=== PATIENT | female | born 1965 | race Caucasian/White ===

== ENCOUNTER 2024-01-23 09:25 | Outpatient (REF) | payer MEDICAID, SELFPAY ==
--- NOTE | 2024-01-23 10:23 | MHC.AU.MED ---
Medical Clearance for Hearing Instrumentation Date: 01/23/24 Patient Name: Sherri Chavez Date of : 1965 Primary Care Provider: Radha Flores MD We have seen your patient on 01/23/24 and have determined that they are a candidate for amplification (See accompanying report). Specifically, they would benefit from: Hearing aid use in both ears There is a statute that addresses Medical Evaluation Requirements prior to fitting a patient with a hearing aid. According to [place] statute [facility] CMR:6.03(1), (a) General. Except as provided in 265 CMR 6.03(1)(b), a patient account analyst shall not sell a hearing aid unless the prospective user has presented to the patient account analyst a written statement signed by a licensed physician that states that the patient's hearing loss has been medically evaluated and the patient may be considered a candidate for a hearing aid. The medical evaluation must have taken place within the preceding six months. Please note: Due to the [place] Statute referenced above, we cannot accept a signature other than that of a licensed physician. ELECTROSLAG WELDING MACHINE OPERATOR and PA signatures cannot be accepted. I am in agreement with the above recommendation. There is no medical contraindication for hearing instrumentation. Physician Signature Date Physician Name (Printed)
--- NOTE | 2024-01-23 13:38 | MHC.AU.HA1 ---
Hearing Aid Evaluation Date of Visit: 01/23/24 Historical Information: Description of Hearing: Mild sensorineural hearing loss rising to normal hearing sloping to moderate hearing loss, bilaterally Summary: Sherri reported significant communication difficulties in her daily interactions. Speech is not clear and she often needs repetition in order to fully understand a conversation. Given the configuration of hearing loss, discussed borderline hearing aid candidacy and realistic expectations. Sherri is motived to use hearing aids while understanding their limitations. She opted to trial rechargeable RITE hearing aids compatible with her iPhone. Provided Sherri with a copy of the medical clearance form at her request. She reported she will bring it to her PCP office to sign and then she will return it here. Once signed medical clearance is received, will need to submit for prior authorization through her insurance. Hearing Aid Prescription: Based on the individual?s shared listening needs, communication environments, dexterity, desire for connectivity, and personal preferences, the following prescription for amplification has been made: Right ear: Make, Model, Color: Oticon REAL 2 miniRITE-R Color: Steel Bingham Battery Size: Rechargeable Carpenters Supervisor/Slim Tube: 2/85 Type of Earmold/Dome/CShell/SlimTip: 8mm open redmond dome Left ear: Left ear prescription to be same as Right Hearing Aid above: Make, Model, Color: Oticon REAL 2 miniRITE-R Color: Steel Bingham Battery Size: Rechargeable Carpenters Supervisor/Slim Tube: 2/85 Type of Earmold/Dome/CShell/SlimTip: 8mm open redmond dome Accessories/Assistive Technology: Enterprise Resource Analyst Plan of Care: Patient wishes to purchase hearing aids as prescribed Action Taken/Action Needed: Medical Clearance to be requested from PCP/ENT. Hearing Instrument Fitting to be scheduled when materials arrive Comments: Once medical clearance is received, will submit PA to insurance. Once PA received, will order hearing aids. Primary Diagnosis: H90.3 Bilateral Sensorineural Hearing Loss Signature: Provider: Mayito Chang, [facility]
== END 2024-01-23 09:26 | disposition home or self-care (01) ==
LOC: HO.SH 09:25
PROVIDERS: PCP Family Medicine; Visit Provider Family Medicine
DX: Z01.118 Encounter for examination of ears and hearing with other abnormal findings (principal); Z46.1 Encounter for fitting and adjustment of hearing aid; H90.3 Sensorineural hearing loss, bilateral
CPT/HCPCS: 92557; 92591

== ENCOUNTER 2025-01-17 09:07 | Outpatient (REF) | payer MEDICAID, SELFPAY ==
--- NOTE | 2025-01-17 14:41 | MHC.AU.HA1 ---
Hearing Aid Evaluation Date of Visit: 01/17/25 Historical Information: Description of Hearing: Mild rising to borderline normal through 3kHz gradually sloping to moderate sensorineural hearing loss Au. Current personal amplification information, if applicable: None. Summary: Sherri was seen last year and was interested in pursuing amplification at that time. She reports her insurance authorization was approved eventually but her hearing test had . We only have record here of a denial of the prior authorization on 03/04/24. Sherri notes significant frustration with hearing difficulty for conversation. Reviewed benefits and limitations of amplification. Discussed adjustment to amplification. Recommended proceeding with trial of RITE style hearing aid as previously discussed in 2023 to facilitate improved communication. Hearing Aid Prescription: Based on the individual?s shared listening needs, communication environments, dexterity, desire for connectivity, and personal preferences, the following prescription for amplification has been made: Right ear: Make, Model, Color: Oticon INTENT 2 miniRITE-R Color: Steel Bingham Battery Size: Rechargeable Grey Tender/Slim Tube: 2/85 Type of Earmold/Dome/CShell/SlimTip: 8mm double redmond Left ear: Make, Model, Color: Oticon INENT 2 miniRITE-R Color: Steel Bingham Battery Size: Rechargeable Grey Tender/Slim Tube: 2/85 Type of Earmold/Dome/CShell/SlimTip: 8mm double redmond dome Plan of Care: Patient wishes to purchase hearing aids as prescribed Action Taken/Action Needed: Prior authorization to be requested Medical Clearance to be requested from PCP/ENT Primary Diagnosis: H90.3 Bilateral Sensorineural Hearing Loss Signature: Provider: Mayito Syed, [facility]
== END 2025-01-17 09:08 | disposition home or self-care (01) ==
LOC: HO.SH 09:07
PROVIDERS: Visit Provider Family Medicine
DX: Z01.118 Encounter for examination of ears and hearing with other abnormal findings (principal); Z46.1 Encounter for fitting and adjustment of hearing aid; H90.3 Sensorineural hearing loss, bilateral
CPT/HCPCS: 92557; 92567; 92591

== ENCOUNTER 2025-02-21 14:58 | Outpatient (REF) | payer MEDICAID, SELFPAY ==
--- NOTE | 2025-02-21 16:07 | MHC.AU.HA2 ---
Hearing Instrument Fitting- Adult- Binaural Date of Visit: 02/21/25 Hearing Instruments Dispensed: Right Ear: Make, Model, Color, Serial Number: Oticon INTENT 2 miniRITE-R Color: Antonio Bingham S#[id number] Load Planner Repair Warranty: 03/04/2028 Load Planner Loss and Damage Warranty: 03/04/2028 [facility] Service Plan: 02/21/26 Battery Size: Rechargeable Backend Developer/Slim Tube: 2/85 Earmold/Dome/CShell/SlimTip: 6mm double redmond Type of Wax Guard: Oticon minifit Prowax Left Ear: Make, Model, Color, Serial Number: Oticon INENT 2 miniRITE-R Color: Antonio Bingham S#[id number] Load Planner Repair Warranty: [id number] Load Planner Loss and Damage Warranty: [id number] [facility] Service Plan: 02/21/26 Battery Size: Rechargeable Backend Developer/Slim Tube: 2/85 Earmold/Dome/CShell/SlimTip: 6mm double redmond dome Type of Wax Guard: Oticon minifit prowax Accessories/Assistive Technology: Oticon sandwich wrapper minirite [id number] Warranty 03/04/2028 Summary of Fitting: Fit with and oriented to binaural Oticon Intent 2 R HAs. Verified to L adult 5 targets. VC disabled at this time. Reviewed charging, maintenance, precautions. Practiced insertion and removal. Not connected to phone at this time, may wish to do this at follow up. Recommendations: Recommendations: A hearing instrument follow-up was scheduled. Diagnosis Code(s): Primary Diagnosis: H90.3 Bilateral Sensorineural Hearing Loss Signature: Provider: Mayito Syed, [facility]
--- OUTSIDE RECORDS SUMMARY | 2025-02-21 17:45 | XMS_ITS | Clinical Summary ---
Author Organization [facility] Address [address] [place] [address] Care Team Providers Care Assistant Associate Professor Name Role Phone Unavailable Primary Care Provider Unavailabl e Allergies Active Allergy Reactions Criticality Noted Date Comments Sulfa Antibiotics Rash Low 10/03/2008 Wound Dressing Adhesive Rash High 10/13/2020 Blistered, weeping periwound skin Medications Medication Sig Dispensed Refills Start Date End Date Status DULoxetine (CYMBALTA) DR capsule 60 mg Take 60,120 mg by mouth daily. 0 Active amphetamine-dextroamp hetamine (ADDERALL XR, 30MG,) 30 MG 24 hr capsule Take 30 mg by mouth every morning. 0 Active lisinopril (PRINIVIL,ZESTRIL) tablet 20 mg Take 1 tablet (20 mg total) by mouth daily. 90 tablet 0 04/08/2022 Active Active Problems Problem Noted Date Diagnosed Date Iron deficiency anemia due to malabsorption of i dwight 07/25/2020 Major depressive disorder, r ecurrent episode, in partial remission 11/02/2015 Obesity, Class III, BMI 40-49.9 (morbid obesity) 01/05/2015 Malabsorption of iron 08/13/2013 S/P gastric bypass 06/01/2009 Family History Medical History Relation Name Comments Cancer Paternal Grandfather Relation Name Status Comments Paternal Grandfather Social History Tobacco Use Types Packs/Day Years Used Date Smoking Tobacco: Never Smokeless Tobacco: Never Alcohol Use Standard Drinks/Week Comments No 0 (1 standard drink = 0.6 oz pur e alcohol) Sex and Gender Information Value Date Recorded Sex Assigned at Female 04/04/2022 3:16 PM EDT Gender Identity Not on file Sexual Orientation Not on file Job Start Date Occupation Industry Not on file Not on file Not on file Last Filed Vital Signs Vital Sign Reading Time Taken Comments Blood Pressure 129/81 04/18/2022 2:22 PM EDT Pulse 82 04/18/2022 2:22 PM EDT Temperature 36.2 ??C (97.2 ??F) 04/18/2022 2:22 PM ED T Respiratory Rate - - Oxygen Saturation 99% 04/18/2022 2:22 PM EDT Inhaled Oxygen Concentration - - Weight 99.5 kg (219 lb 6.4 oz) 04/08/2022 3:02 P M EDT Height 152.4 cm (5') 04/08/2022 3:02 PM EDT Body Mass Index 42.85 04/08/2022 3:02 PM EDT Plan of Treatment Health Maintenance Due Date Last Done Comments Hepatitis C Screening 1965 COVID-19 Vaccine (#1) 01/07/1965 Depression Screening 1976 BMI Counseling 1982 Preventative Health Evaluation 1982 Cervical Cancer Screening (P ap Smear) 1985 Colon Cancer Screening (Colonoscopy) 2009 Breast Cancer Screening (Mammogram) 2014 Shingrix-Zoster Vaccine (2 of 2) 12/01/2020 10/06/20 20 DTap / Tdap / Td (2 - Td or Tdap) 06/24/2023 013 Influenza Vaccine (#1) 2024 RSV Adult > 60+ Yrs or Pregn ant (1 - 1-dose 75+ series) 2039 Hepatitis B Vaccines Aged Out No long er eligible based on patient's age to complete this topic Pneumococcal Vaccine Aged Out No long er eligible based on patient's age to complete this topic RSV Ped < 20 months Aged Out No longe r eligible based on patient's age to complete this topic
--- OUTSIDE RECORDS SUMMARY | 2025-02-21 17:45 | XMS_ITS | Clinical Summary ---
Author Organization [facility] it[facility] Address [address] [place] [address] Care Team Providers Care Robotic Machine Operator Name Role Phone Reza Flaherty MD Primary Care Provider Allergies Active Allergy Reactions Criticality Noted Date Comments Gum Bucgvk-Oxcugg-Fmla-Alcoho l Rash High 10/13/2020 Blistered, weeping periwound skin Medications lisinopriL (PRINIVIL,ZESTR IL) 20 mg tablet Take 1 tablet (20 mg total) by mouth 1 (one) time each day. 2 Active DULoxetine (CYMBALTA) [address] capsule Take 2 capsules (120 mg total) by mouth 1 (one) time each day. With breakfast 0 Active amphetamine-dex troamphetamine (ADDERALL) 10 mg tablet Take 1 tablet (10 mg total) by mouth 2 (two) times a day. 30 days Max Daily Amount: 20 mg 0 Active amphetamine-dex troamphetamine XR (ADDERALL XR) 30 mg 24 hr capsule Take 1 capsule (30 mg total) by mouth 1 (one) time each day in the morning. For 30 days Max Daily Amount: 30 mg 0 Active Active Problems Problem Noted Date Diagnosed Date Vitamin D deficiency 06/03/2021 Essential hypertension 09/18/2020 Incisional hernia of anterio r abdominal wall without obstruction or gangrene 09/08/2020 Attention deficit hyperactiv ity disorder (ADHD), predominantly hyperactive type 02/25/2019 Major depressive disorder, r ecurrent episode, in partial remission (CMS/HCC V24) 11/02/2015 Obesity, Class III, BMI 40-49.9 (morbid obesity) 01/05/2015 Compulsive skin picking 01/06/2014 Malabsorption of iron 08/13/2013 Iron deficiency anemia 06/24/2013 Overview (10/23/2024): IV iron infusion by Dr. Crowe Proctalgia fugarin 08/11/2012 Immunizations Name Administration Dates Next Due Tdap Tetanus diptheria acell ular pertussis (Boostrix; Adacel) 7yo and older 06/24/2013 Zoster recombinant (Shingrix) 19yo and older 08/2020 Surgical History Surgery Date Site/Laterality Comments TONSILLECTOMY ADENOIDECTOMY, BILATERAL MYRINGOTOMY AND TUBES PROCEDURE: CT TONSILLECTOMY & ADENOIDECTOMY <AGE 12 GASTRIC BYPASS 2006 PROCEDURE: CT GASTRIC RSTCV W/BYP W/SM INT RCNSTJ LIMIT ABSRPJ; COMMENT: Vertical sleeve gastrectomy, Dr. Valdez Mccurdy, [place] OTHER SURGICAL HISTORY 12/2019 PROCEDURE: CT PROCTOPEXY W/SIGMOID RESCJ ABDL APPR; COMMENT: rectal prolaps GASTRIC BYPASS PROCEDURE:GASTRIC BYPASS HAND SURGERY Right PROCEDURE:HAND SURGERY HAND SURGERY Left PROCEDURE:HAND SURGERY CHOLECYSTECTOMY PROCEDURE:CHOLECYSTECTOMY TONSILLECTOMY PROCEDURE:TONSILLECTOMY Medical History Medical History Date Comments Obesity DX:Obesity Depression DX:Depression Mammogram abnormal DX:Mammogram abnormal Trigger finger DX:Trigger finge r; COMMENT: s/p othropedic surgery Asthma DX:Asthma; COMME NT: exercise induced Unspecified essential hypertension DX:Unspecified essential hypertension Iron deficiency anemia, unspecified 06/24/2013 DX:Iron deficiency anemia, unspecified Essential (primary) hypertension DX:Essential (primary) hypertension ADHD, predominantly hyperactive type DX:ADHD, predominantly hyperactive type Major depressive disorder, r ecurrent episode, in partial remission (CMS/HCC V24) DX:Major depressive disorder , recurrent episode, in partial remission (HCC) Malabsorption of iron DX:Malabso rption of iron Iron deficiency anemia DX:Iron d eficiency anemia Proctalgia fugax DX:Proctalgia f ugax Family History Medical History Relation Name Comments Depression Brother 1 2 brothers ALS Father Hypertension Father Alcohol abuse Maternal Grandfather Depression Mother Cancer Paternal Grandfather Leukemia Paternal Grandfather lung ca ncer Depression Sister 1 Breast cancer Neg Hx Colon cancer Neg Hx Ovarian cancer Neg Hx Uterine cancer Neg Hx Relation Name Status Comments Brother 1 Brother 2 Alive 40 depression Brother 3 Alive 35 Brother 4 Alive 33 depression Daughter Alive 5 adopted asthm a Father knee replacemen t, HTN, ALS Maternal Grandfather alcohol abuse Maternal Grandmother mental illness Mother Alive depression Paternal Grandfather Sister 1 Sister 2 Alive 37 depression, [place] Social History Tobacco Use Types Packs/Day Years Used Date Smoking Tobacco: Never Smokeless Tobacco: Never Alcohol Use Standard Drinks/Week Comments No 0 (1 standard drink = 0.6 oz pur e alcohol) Comments Unknown Sex and Gender Information Value Date Recorded Sex Assigned at Not on file Legal Sex Female 11:39 PM EST Gender Identity Not on file Sexual Orientation Not on file Obstetrics History Last Filed Vital Signs Vital Sign Reading Time Taken Comments Blood Pressure 171/98 04/08/2022 3:02 PM EDT Sitting Left arm Pulse 112 04/08/2022 3:02 PM EDT Temperature - - Respiratory Rate - - Oxygen Saturation - - Inhaled Oxygen Concentration - - Weight 99.5 kg (219 lb 6.4 oz) 04/08/2022 3:02 PM EDT Height 152.4 cm (5') 04/08/2022 3:02 PM EDT Body Mass Index 42.85 04/08/2022 3:02 PM EDT Plan of Treatment Health Maintenance Due Date Last Done Comments Pneumococcal Vaccine: 50+ Years (1 of 1 - PCV) 2014 Cervical Cancer Screening: Pap Smear 11/05/2020 11/05/2017, 11/05/2017 Zoster Vaccines (2 of 2) 12/01/2020 10/06/2020 Depression Screening 10/05/2022 HIV Screening 10/05/2022 Hepatitis C Screening 10/05/2022 Hypertension/CHF/CAD Annual BMP Blood Test 10/05/2022 05/25/2021 Social Influencers of Health Screening 10/05/2022 DTaP,Tdap,and Td Vaccines (2 - Td or Tdap) 06/24/2023 06/24/2013 Breast Cancer Screening 10/10/2023 10/10/20 21, 09/27/2020, 09/22/2019, Additional history exists COVID-19 Vaccine ( season) 2024 10/17/2021, 03/28/2021, 02/28/2021 RSV Immunization Adult Patients (1 - Risk 60-74 years 1-dose series) 2024 Influenza Vaccine (Season Ended) 2025 Cholesterol Screening (Lipid Panel) 11/02/2025 11/02/2020 Colorectal Cancer Screening: Colonoscopy 12/06/2026 12/22/2024 HIB Vaccines Aged Out No longer eligi ble based on patient's age to complete this topic HPV Vaccines Aged Out No longer eligi ble based on patient's age to complete this topic Hepatitis A Vaccines Aged Out No long er eligible based on patient's age to complete this topic Hepatitis B Vaccines Aged Out No long er eligible based on patient's age to complete this topic IPV Vaccines Aged Out No longer eligi ble based on patient's age to complete this topic MMR Vaccines Aged Out No longer eligi ble based on patient's age to complete this topic Meningococcal ACWY Vaccine Aged Out N o longer eligible based on patient's age to complete this topic Meningococcal B Vaccine Aged Out No l onger eligible based on patient's age to complete this topic Pneumococcal Vaccine: Pediatrics (0 to 5 Years) and At-Risk Patients (6 to 64 Years) Aged Out No longer eligible based on patient's age to complete this topic RSV Immunization Patients Under 20 months Aged Out No longer eligible based on patient's age to complete this topic Varicella Vaccines Aged Out No longer eligible based on patient's age to complete this topic Procedures Procedure Name Priority Date/Time Associated Diagnosis Comments EXTERNAL COLONOSCOPY REPORT Routine 12/22/2024 2:58 PM EST SCREENING MAMMOGRAPHY BI 2-VIEW BREAST INC CAD Routine 10/10/2021 8:16 AM EST Encounter for screening mammogram for malignant neoplasm of breast ANNUAL BMP BLOOD TEST Routine 05/25/2021 LIPID PANEL Routine 11/02/2020 HPV Routine 11/05/2017 from Last 3 Months or Most Recently Relevant to Health Maintenance Results * External Colonoscopy Report (12/22/2024 2:58 PM EST) Anatomical Region Laterality Modality Endoscopy us Historical Provider GI~PROCEDURE ORDERABLES F inal Result * SCREENING MAMMOGRAPHY BI 2-VIEW BREAST INC CAD (10/10/2021 8:16 AM EST) Anatomical Region Laterality Modality Radiographic Myla ging 09/27/2020 7:57 AM EST Narrative 10/10/2021 2:34 PM EST This is a summary report. The complete report is available in the patient's medical record. If you cannot access the medical record, please contact the sending organization for a detailed fax or copy. Full field digital 2D and tomosynthesis creening mammography, reviewed with CAD and compared to previous. ??The breasts are composed of fatty and fibroglandular tissue. ??No suspicious mass, architectural distortion or suspicious calcifications are identified. IMPRESSION: : No mammographic evidence of malignancy. BIRADS 1-Negative; N. 5 year breast cancer risk assessment 1.6 % Lifetime breast cancer risk assessment 9.5 % Breast cancer risk category Low (<15%) Procedure Note Azalea Smith MD - 10/15/2022 This is a summary report. The complete report is available in thepatient's medical record. If you cannot access the medical record, pleasecontact the sending organization for a detailed fax or copy. Full field digital 2D and tomosynthesis creening mammography, reviewedwith CAD and compared to previous. The breasts are composed of fatty andfibroglandular tissue. No suspicious mass, architectural distortion orsuspicious calcifications are identified. IMPRESSION: : No mammographic evidence of malignancy. BIRADS 1-Negative; N. 5 year breast cancer risk assessment 1.6 % Lifetime breast cancer risk assessment 9.5 % Breast cancer risk category Low (<15%) Shawnee Flanagan MD IMG XR PROCEDURES Final Result * Annual BMP Blood Test (05/25/2021) Pathologist [facility] Annual BMP Blood Test abstracted Historical Provider HEALTH MAINTENANCE Final Result * Lipid panel (11/02/2020) LDL/HDL Ratio 2 0 - 4 Triglycerides 63 0 - 150 mg/dL Cholesterol 142 0 - 200 mg/dL HDL 61 >=40 mg/dL LDL Cholesterol 69 0 - 100 mg/dL Blood Venous blood specimen / Unknown us Historical Provider LAB BLOOD ORDERABLES Gloria l Result * Cervical Cancer Screening: HPV (11/05/2017) Cervical Cancer Screening: HPV abstracted, negative us Historical Provider HEALTH MAINTENANCE Final Result from Last 3 Months or Most Recently Relevant to Health Maintenance Care Teams Robotic Machine Operator Relationship Specialty Start Date End Date Reza Flaherty MD [address] [place] [address] PCP - General Internal Medicine 03/21/22
== END 2025-02-21 14:59 | disposition home or self-care (01) ==
LOC: HO.HAP 14:58
PROVIDERS: Visit Provider Family Medicine
DX: Z46.1 Encounter for fitting and adjustment of hearing aid (principal); H90.3 Sensorineural hearing loss, bilateral
CPT/HCPCS: V5011; V5020; V5160; V5261

== ENCOUNTER 2025-03-14 14:02 | Outpatient (REF) | payer MEDICAID, SELFPAY ==
--- OUTSIDE RECORDS SUMMARY | 2025-03-14 14:08 | XMS_ITS | Clinical Summary ---
Author Organization [facility] Address [address] [place] [address] Care Team Providers Care Stake Setter Name Role Phone Unavailable Primary Care Provider [...]
--- OUTSIDE RECORDS SUMMARY | 2025-03-14 14:08 | XMS_ITS | Clinical Summary ---
Author Organization [facility] it[facility] Address [address] [place] [address] Care Team Providers Care Auto Servicer Name Role Phone Reza Flaherty MD Primary Care Provider Allergies Active Allergy Reactions Criticality Noted Date Comments Gum Laqdlz-Vtcliw-Aohk-Alcoho l Rash High 10/13/2020 Blistered, weeping periwound [...] TONSILLECTOMY ADENOIDECTOMY, BILATERAL MYRINGOTOMY AND TUBES PROCEDURE: [place] TONSILLECTOMY & ADENOIDECTOMY <AGE 11 GASTRIC BYPASS 2006 PROCEDURE: [place] GASTRIC RSTCV W/BYP W/SM INT RCNSTJ LIMIT ABSRPJ; COMMENT: Vertical sleeve gastrectomy, Dr. Valdez Mccurdy, [place] OTHER SURGICAL HISTORY 12/2019 PROCEDURE: [place] PROCTOPEXY W/SIGMOID RESCJ ABDL APPR; COMMENT: rectal [...] * Annual BMP Blood Test (05/25/2021) Pathologist [facility] Annual BMP Blood Test abstracted Historical Provider [...] Recently Relevant to Health Maintenance Care Teams Auto Servicer Relationship Specialty Start Date End Date Reza Flaherty MD [address] [place] [address] PCP - General Internal Medicine 03/21/22
== END 2025-03-14 14:03 | disposition home or self-care (01) ==
LOC: HO.HAP 14:02
PROVIDERS: Visit Provider Family Medicine
DX: Z13.89 Encounter for screening for other disorder (principal)

== ENCOUNTER 2025-05-23 09:16 | Outpatient (REF) | payer MEDICAID, SELFPAY ==
--- OUTSIDE RECORDS SUMMARY | 2025-05-23 10:02 | XMS_ITS ---
Author Name [facility] Organization Unknown Care Team Organization Name Specialty Phone Email Start Date End Da christa [facility] Delroy Mendez Primary Care 09/03/2022
--- OUTSIDE RECORDS SUMMARY | 2025-05-23 10:02 | XMS_ITS | Clinical Summary ---
Author Organization [facility] it[facility] Address [address] [place] [address] Care Team Providers Care Farm Crew Member Name Role Phone Reza Flaherty MD Primary Care Provider Allergies Active Allergy Reactions Criticality Noted Date Comments Gum Siwttg-Lwbpjw-Hlgb-Alcoho l Rash High 10/13/2020 Blistered, weeping periwound [...] TONSILLECTOMY ADENOIDECTOMY, BILATERAL MYRINGOTOMY AND TUBES PROCEDURE: [place] TONSILLECTOMY & ADENOIDECTOMY <AGE 11 GASTRIC BYPASS 2006 PROCEDURE: [place] GASTRIC RSTCV W/BYP W/SM INT RCNSTJ LIMIT ABSRPJ; COMMENT: Vertical sleeve gastrectomy, Dr. Valdez Mccurdy, [place] OTHER SURGICAL HISTORY 12/2019 PROCEDURE: [place] PROCTOPEXY W/SIGMOID RESCJ ABDL APPR; COMMENT: rectal [...] Zoster Vaccines (2 of 2) 12/01/2020 10/06/2020 HIV Screening 10/05/2022 Hepatitis C Screening 10/05/2022 Hypertension/CHF/CAD Annual BMP Blood Test 10/05/2022 05/25/2021 Social Influencers of Health Screening 10/05/2022 DTaP,Tdap,and Td Vaccines (2 - Td or Tdap) 06/24/2023 06/24/2013 Breast Cancer Screening 10/10/2023 10/10/20 21, 09/27/2020, 09/22/2019, Additional history exists COVID-19 Vaccine ( - season) 2024 10/17/2021, 03/28/2021, 02/28/2021 RSV Immunization Adult Patients (1 - Risk 60-74 years 1-dose series) 2024 Depression Screening 10/27/2024 Influenza Vaccine (#1) 2025 Cholesterol Screening (Lipid Panel) 11/02/2025 11/02/2020 [...] reviewed with CAD and compared to previous. The breasts are composed of fatty and fibroglandular tissue. No suspicious mass, architectural distortion or suspicious calcifications [...] * Annual BMP Blood Test (05/25/2021) Pathologist [facility] Annual BMP Blood Test abstracted Historical Provider HEALTH MAINTENANCE Final Result * Lipid panel (11/02/2020) [facility] LDL/HDL Ratio 2 0 - 4 Triglycerides 63 0 - 150 mg/dL Cholesterol 142 0 - 200 mg/dL HDL 61 >=40 mg/dL LDL Cholesterol 69 0 - 100 mg/dL Blood Venous blood specimen / Unknown Historical Provider LAB BLOOD ORDERABLES Gloria l Result * Cervical Cancer Screening: HPV (11/05/2017) Cervical Cancer Screening: HPV abstracted, negative us Historical Provider HEALTH MAINTENANCE Final Result from Last 3 Months or Most Recently Relevant to Health Maintenance Care Teams Farm Crew Member Relationship Specialty Start Date End Date Reza Flaherty MD [address] [place] [address] PCP - General Internal Medicine 03/21/22
--- OUTSIDE RECORDS SUMMARY | 2025-05-23 10:02 | XMS_ITS | Clinical Summary ---
Author Organization [facility] Address [address] [place] [address] Care Team Providers Care Riveter Hand Name Role Phone Unavailable Primary Care Provider [...] 82 04/18/2022 2:22 PM EDT Temperature 36.2 C (97.2 F) 04/18/2022 2:22 PM EDT Respiratory Rate - - Oxygen Saturation 99% [...] or Tdap) 06/24/2023 013 Influenza Vaccine (#1) 2025 RSV Adult > 60+ Yrs or Pregn [...]
--- OUTSIDE RECORDS SUMMARY | 2025-05-23 10:02 | XMS_ITS | Encounter Summary ---
Author Organization [facility] Address [address] [place] [phone] Phone Care Team Providers Care Unionmelt Operator Name Role Phone Unknown, Unknown Primary Care Provider Radha Crandall MD Primary Care Provider [phone] Taylor Knox MD, MPH Primary Care Provid er Radha Flores MD Unavailable [phone] Taylor Knox MD, MPH Unavailable + [phone] Magdalena Pace RN Unavailable [phone] Joceline Gonzalez PT Unavailable [phone] Reason for Visit * Reason Comments Med Change Request Encounter Details Date Type Department Care Team (Late st Contact Info) Description 10/15/2022 Refill [facility] [address] [place] [address] Ferdinand Cole PA-C [address] [place] [address] [email or web address] Med Change Request Social History Tobacco Use Types Packs/Day Years Used Date Smoking Tobacco: Never Smokeless Tobacco: Never Comments Unknown Sex and Gender Information Value Date Recorded Sex Assigned at Female 08/11/2023 1:58 PM EDT Legal Sex Female 9:42 PM EDT Gender Identity Female 08/11/2023 1:58 PM EDT Sexual Orientation Queer 08/11/2023 1: 58 PM EDT documented as of this encounter Progress Notes * Amy Hoskins MA - 10/15/2022 10:01 AM EST INSTRUCTIONS FOR CLINICAL STAFF (Steps for MA/RN to complete): n/a Visit Info ??? Last visit: 10/15/2022 (Ferdinand Cole PA-C) > Requested f/u: Not specified ??? Upcoming visit: 10/15/2022 (Ferdinand Cole PA-C) ACTIONS TAKEN BY Amy Hoskins - Refill protocol passed: no action needed. ACEi / ARBs / Diuretic Rx Protocol (on HTN Registry) ??? Visit in the past 12 months: Yes ??? Clinical criteria: - BP within last 6 months: 140/87 on 10/15/2022 - BMP within past year: Yes - Cr, GFR and K are normal: Yes Lab Results Component Value Date SODIUM 140 03/30/2022 POTASSIUM 3.5 03/30/2022 CHLORIDE 105 03/30/2022 CO2 26 03/30/2022 BUN 13 03/30/2022 CREATININE 0.50 03/30/2022 EGFR 109 03/30/2022 Health Maintenance Due Topic Date Due ??? MAMMOGRAM Never done ??? LIPID PANEL Never done ??? DEPRESSION SCREENING Never done ??? HEPATITIS C SCREENING Never done ??? HIV ONE-TIME SCREENING (18-65 YEARS) Never done ??? PAP SMEAR Never done ??? COLORECTAL CANCER SCREENING Never done ??? INFLUENZA VACCINE (1) 05/27/2022 documented in this encounter Plan of Treatment Upcoming Encounters Date Type Department Care Team (Late st Contact Info) Description 01/14/2025 Procedure Pass [address] [address] 08/01/2025 8:45 AM EDT Appointment [address] [address] Taylor Knox MD, MPH [address] [place] [phone] [email or web address] documented as of this encounter Visit Diagnoses Not on filedocumented in this encounter Additional Health Concerns Infection Onset Date Last Indicated Resolved Time CoV-Risk 12/14/2022 12/14/2022 12/25/2022 1:22 AM EST CoV-Risk 03/29/2024 03/29/2024 04/09/2024 1:21 AM EDT documented as of this encounter Care Teams Unionmelt Operator Relationship Specialty Start Date End Date Unknown, Unknown, MD PCP - General 05/03/22 11/12/22 Radha Flores MD [address] [place] [phone] [email or web address] PCP - General Family Medicine 11/13/22 12/13/22 Taylor Knox MD, MPH [address] [place] [phone] [email or web address] PCP - General Family Medicine 12/14/22 Radha Flores MD [address] [place] [phone] [email or web address] Insurance Assigned Provider 01/04/23 02/08/23 Taylor Knox MD, MPH [address] [place] [phone] [email or web address] Insurance Assigned Provider 02/08/23 07/05/23 Magdalena Pace, RN [address] [place] [address] [email or web address] 08/24/24 09/21/24 Joceline Gonzalez, PT [address] [place] [phone] [email or web address] Physical Therapist Physical Therapy 12/06/24 documented as of this encounter Additional Source Comments The information contained in this document represents components of the legal health record. It is not the complete legal health record.[facility]
== END 2025-05-23 09:17 | disposition home or self-care (01) ==
LOC: HO.HAP 09:16
PROVIDERS: Visit Provider Family Medicine
DX: Z13.89 Encounter for screening for other disorder (principal)